=== PATIENT | female | born 1995 | race Caucasian/White ===

== ENCOUNTER 2018-03-12 19:21 | Emergency (ER) | payer MEDICAID ==
[~2018-03-12] VITALS: Ht 160 cm; Wt 63.0 kg
[~2018-03-12 19:21] MED LIST: ANTI14DR2 OT; IBUP-1984 PO; IBUP-1986 PO; METH500T6 PO; NO HOME MEDS; ONDA4TAB6 PO; ONDA8TAB9 PO; PSEU-259 CORPAK
[2018-03-12] MEDS ORDERED: TRIA15CR61 TOP (20:36)
[2018-03-12 20:39] VITALS: BP 125/89
== END 2018-03-12 20:46 | disposition home or self-care (01) ==
LOC: ER 19:22
DX: L23.9 Allergic contact dermatitis, unspecified cause (principal); F12.10 Cannabis abuse, uncomplicated; F17.200 Nicotine dependence, unspecified, uncomplicated; Z98.890 Other specified postprocedural states
CPT/HCPCS: 99283

== ENCOUNTER 2018-08-30 18:47 | Emergency (ER) | payer MEDICAID ==
[~2018-08-30] VITALS: Ht 157.5 cm; Wt 66.0 kg
[2018-08-30 18:52] VITALS: BP 136/82
[2018-08-30] MEDS ORDERED: IBUP-1984 PO (20:16)
== END 2018-08-30 20:25 | disposition home or self-care (01) ==
LOC: ER 18:47
DX: M79.645 Pain in left finger(s) (principal); M79.642 Pain in left hand; F12.90 Cannabis use, unspecified, uncomplicated; X58.XXXA Exposure to other specified factors, initial encounter; Y93.89 Activity, other specified; Y92.89 Other specified places as the place of occurrence of the external cause; Y99.8 Other external cause status
CPT/HCPCS: 73130; 99284

== ENCOUNTER 2019-09-13 12:10 | Emergency (ER) | payer MEDICAID ==
[~2019-09-13] VITALS: Ht 162.6 cm; Wt 61.0 kg
[2019-09-13 12:17] VITALS: BP 108/73
[2019-09-13] MEDS ORDERED: ibuprofen tablet 400 MG TABLET PO ONE (13:45)
[2019-09-13] MEDS ORDERED: acetaminophen 325mg tablet PO ONE (13:45)
== END 2019-09-13 13:55 | disposition home or self-care (01) ==
LOC: ER 12:10
DX: S93.402A Sprain of unspecified ligament of left ankle, initial encounter (principal); F12.90 Cannabis use, unspecified, uncomplicated; Z98.890 Other specified postprocedural states; W10.9XXA Fall (on) (from) unspecified stairs and steps, initial encounter; Y93.89 Activity, other specified; Y92.89 Other specified places as the place of occurrence of the external cause; Y99.9 Unspecified external cause status
CPT/HCPCS: 73610; 99283

== ENCOUNTER 2020-01-19 14:23 | Emergency (ER) | payer MEDICAID ==
[~2020-01-19] VITALS: Ht 157.5 cm; Wt 56.0 kg
[2020-01-19 14:53] LABS: URINE HCG NEGATIVE (NEG)
[2020-01-19 14:56] LABS: BASOPHILS % (AUTO) 0.5 % (0-1); EOSINOPHILS % (AUTO) 0.4 % (0-6); HEMATOCRIT 43.2 % (35.0-45.0); HEMOGLOBIN 14.6 g/dl (12.0-16.0); LYMPHOCYTES # (AUTO) 1.9 X10'3 (1.1-4.8); LYMPHOCYTES % (AUTO) 21.8 % (21-51); MEAN CORPUSCULAR HEMOGLOBIN 30.7 PG (27.0-31.0); MEAN CORPUSCULAR HGB CONC 33.7 g/dL (33.0-36.5); MEAN CORPUSCULAR VOLUME 91.2 FL (78-98); MEAN PLATELET VOLUME 8.2 FL (7.4-10.4); MONOCYTES # (AUTO) 0.6 X10'3 (0-0.9); MONOCYTES % (AUTO) 6.5 % (2-12); NEUTROPHILS # (AUTO) 6.2 X10'3 (1.8-7.7); NEUTROPHILS % (AUTO) 70.8 % (42-75); PLATELET COUNT 295 X10'3 (140-440); RED BLOOD COUNT 4.74 X10'6 (4.20-5.60); RED CELL DISTRIBUTION WIDTH 13.7 % (11.5-14.5); WHITE BLOOD COUNT 8.8 X10'3 (4.5-11.0)
[2020-01-19 14:56] LABS: CLARITY,URINE CLOUDY (Clear); GLUCOSE, URINE NEGATIVE (Neg); KETONES,URINE 15 mg/dl (Neg); LEUKOCYTE ESTERASE ,URINE SMALL (Neg); NITRITES, URINE NEGATIVE (Neg); OCCULT BLOOD,URINE TRACE-INTACT (Neg); PROTEIN,URINE TRACE mg/dl (Neg)
[2020-01-19 14:58] LABS: UA COLLECTION TYPE CLN CATCH MIDSTREAM
[2020-01-19 14:59] LABS: COLOR,URINE DARK YELLOW (Yellow)
[2020-01-19 15:04] LABS: BACTERIA,URINE 4+ /HPF (Neg); MUCUS STRANDS MANY /LPF (Neg); RBC,URINE 0-2 /HPF (0-2); SQUAMOUS EPITHELIAL CELL,UR MANY /LPF (FEW); WBC,URINE 20-30 /HPF (0-4)
[2020-01-19 15:14] LABS: ALANINE AMINOTRANSFERASE 10 U/L (12-78); ALBUMIN 3.9 G/DL (3.4-5.0); ALKALINE PHOSPHATASE 60 IU/L (46-116); ANION GAP 8 (8-16); ASPARTATE AMINO TRANSFERASE 15 U/L (10-37); BILIRUBIN,TOTAL 1.1 MG/DL (0.1-1.0); BLOOD UREA NITROGEN 8 MG/DL (7-18); BUN/CREATININE RATIO 6.7 (6.6-38.0); CALCIUM 8.8 MG/DL (8.5-10.1); CHLORIDE 104 MMOL/L (99-107); GLUCOSE 86 MG/DL (70-104); LIPASE 71 U/L (73-393); POTASSIUM 3.2 MMOL/L (3.5-5.1); SODIUM 140 MMOL/L (135-145); TOTAL CARBON DIOXIDE 28.1 MMOL/L (24-32); TOTAL PROTEIN 7.8 G/DL (6.4-8.2); eGFR 56 ML/MIN
[2020-01-19] MEDS ORDERED: sucralfate 1 gm tablet PO ONE (15:15)
[2020-01-19] MEDS ORDERED: LIDOcaine Viscous 15ml cup MM ONE (15:15)
[2020-01-19] MEDS ORDERED: mag hydrox/Alum hydrox/simeth 30ml oral suspension PO ONE (15:15)
--- NOTE | 2020-01-19 15:50 | NUR ---
patient given gi cocktail was able tyom take a little more than half before gagging, will try to give her more
[2020-01-19 16:03] VITALS: BP 105/57
== END 2020-01-19 16:26 | disposition home or self-care (01) ==
LOC: ER 14:24
DX: R10.11 Right upper quadrant pain (principal); R11.2 Nausea with vomiting, unspecified; F12.90 Cannabis use, unspecified, uncomplicated; F17.200 Nicotine dependence, unspecified, uncomplicated; Z98.890 Other specified postprocedural states
CPT/HCPCS: 36415; 76700; 80053; 81001; 81025; 83690; 85025; 99284

== ENCOUNTER 2020-06-18 11:11 | Emergency (ER) | payer MEDICAID ==
[~2020-06-18] VITALS: Ht 157.5 cm; Wt 57.6 kg
[2020-06-18 11:23] VITALS: BP 117/77
[2020-06-18] MEDS ORDERED: HYDR-4383 PO (12:34)
[2020-06-18] MEDS ORDERED: AMOX-422 PO (12:34)
== END 2020-06-18 12:41 | disposition home or self-care (01) ==
LOC: ER 11:12
DX: K04.7 Periapical abscess without sinus (principal); F17.200 Nicotine dependence, unspecified, uncomplicated; F12.90 Cannabis use, unspecified, uncomplicated; Z98.890 Other specified postprocedural states; Z79.2 Long term (current) use of antibiotics; Z79.899 Other long term (current) drug therapy
CPT/HCPCS: 99283

== ENCOUNTER 2020-06-21 20:06 | Emergency (ER) | payer MEDICAID ==
[~2020-06-21] VITALS: Ht 157.5 cm; Wt 56.6 kg
[~2020-06-21 20:06] MED LIST changes: +AMOX-422 PO; +HYDR-4383 PO
[2020-06-21] MEDS ORDERED: HYDR-3965 PO (20:52)
[2020-06-21] MEDS ORDERED: ketorolac trometh. 30mg/ml inj. IM ONE (20:55)
[2020-06-21 21:09] VITALS: BP 117/87
== END 2020-06-21 21:12 | disposition home or self-care (01) ==
LOC: ER 20:06
DX: K02.9 Dental caries, unspecified (principal); F17.200 Nicotine dependence, unspecified, uncomplicated; F12.90 Cannabis use, unspecified, uncomplicated; Z98.890 Other specified postprocedural states; Z79.899 Other long term (current) drug therapy
CPT/HCPCS: 96372; 99283; J1885

== ENCOUNTER 2020-07-03 20:00 | Emergency (ER) | payer MEDICAID ==
[~2020-07-03] VITALS: Ht 160 cm; Wt 58.0 kg
[~2020-07-03 20:00] MED LIST changes: -AMOX-422 PO
[2020-07-03 20:11] VITALS: BP 99/67
[2020-07-03] MEDS ORDERED: LIDOcaine Viscous 15ml cup MM STA (21:21)
[2020-07-03] MEDS ORDERED: penicillin V potassium 500mg tablet PO ONE (21:25)
[2020-07-03] MEDS ORDERED: LIDO20SO16 PO (21:57)
[2020-07-03] MEDS ORDERED: PENI500T2 PO (21:57)
== END 2020-07-03 22:02 | disposition home or self-care (01) ==
LOC: ER 20:01
DX: K08.89 Other specified disorders of teeth and supporting structures (principal); R51 Headache; F12.90 Cannabis use, unspecified, uncomplicated; Z98.890 Other specified postprocedural states; Z79.899 Other long term (current) drug therapy
CPT/HCPCS: 99283

== ENCOUNTER 2020-10-02 09:01 | Emergency (ER) | payer MEDICAID ==
[~2020-10-02] VITALS: Ht 157.5 cm; Wt 57.4 kg
[~2020-10-02 09:01] MED LIST changes: +LIDO20SO16 PO
[2020-10-02 09:03] VITALS: BP 109/80
[2020-10-02] MEDS ORDERED: AMOX500C2 PO (09:20)
== END 2020-10-02 09:48 | disposition home or self-care (01) ==
LOC: ER 09:01
DX: K08.89 Other specified disorders of teeth and supporting structures (principal); S02.5XXA Fracture of tooth (traumatic), initial encounter for closed fracture; F12.90 Cannabis use, unspecified, uncomplicated; Z79.899 Other long term (current) drug therapy; Z98.890 Other specified postprocedural states; Z79.2 Long term (current) use of antibiotics; X58.XXXA Exposure to other specified factors, initial encounter; Y93.89 Activity, other specified; Y92.89 Other specified places as the place of occurrence of the external cause; Y99.8 Other external cause status
CPT/HCPCS: 99283

== ENCOUNTER 2020-11-10 17:25 | Emergency (ER) | payer MEDICAID ==
[~2020-11-10] VITALS: Ht 157.5 cm; Wt 59.1 kg
[2020-11-10 18:47] VITALS: BP 106/62
== END 2020-11-10 18:45 | disposition home or self-care (01) ==
LOC: ER 17:25
DX: M65.842 Other synovitis and tenosynovitis, left hand (principal); M79.642 Pain in left hand; R20.0 Anesthesia of skin; M19.90 Unspecified osteoarthritis, unspecified site; F17.200 Nicotine dependence, unspecified, uncomplicated; F12.90 Cannabis use, unspecified, uncomplicated; Z98.890 Other specified postprocedural states; Z79.899 Other long term (current) drug therapy
CPT/HCPCS: 29125; 73110; 99283

== ENCOUNTER 2021-01-22 09:09 | Emergency (ER) | payer BC, MEDICAID ==
[~2021-01-22] VITALS: Ht 160 cm; Wt 65.0 kg
[~2021-01-22 09:09] MED LIST changes: +METH-797 PO; -METH500T6 PO
[2021-01-22 09:11] VITALS: BP 115/79
== END 2021-01-22 10:45 | disposition home or self-care (01) ==
LOC: ER 09:10
DX: M75.101 Unspecified rotator cuff tear or rupture of right shoulder, not specified as traumatic (principal); M19.90 Unspecified osteoarthritis, unspecified site; F12.90 Cannabis use, unspecified, uncomplicated; Z98.890 Other specified postprocedural states; Z79.899 Other long term (current) drug therapy
CPT/HCPCS: 73030; 99283

== ENCOUNTER 2021-06-29 15:16 | Emergency (ER) | payer BC, MEDICAID ==
[~2021-06-29] VITALS: Ht 157.5 cm; Wt 63.2 kg
[2021-06-29 15:28] VITALS: BP 125/90
[2021-06-29] MEDS ORDERED: PENI250T2 PO (16:18)
[2021-06-29] MEDS ORDERED: PRED20TA PO (16:18)
[2021-06-29] MEDS ORDERED: LIDO20SO16 PO (16:18)
== END 2021-06-29 16:22 | disposition home or self-care (01) ==
LOC: ER 15:16
DX: S02.5XXA Fracture of tooth (traumatic), initial encounter for closed fracture (principal); K08.89 Other specified disorders of teeth and supporting structures; M19.90 Unspecified osteoarthritis, unspecified site; F12.90 Cannabis use, unspecified, uncomplicated; Z98.890 Other specified postprocedural states; Z79.2 Long term (current) use of antibiotics; Z79.899 Other long term (current) drug therapy; X58.XXXA Exposure to other specified factors, initial encounter; Y93.89 Activity, other specified; Y92.89 Other specified places as the place of occurrence of the external cause; Y99.8 Other external cause status
CPT/HCPCS: 99283

== ENCOUNTER 2022-02-28 15:20 | Emergency (ER) | payer MEDICAID ==
[~2022-02-28] VITALS: Ht 160 cm; Wt 67.7 kg
[2022-02-28 15:30] VITALS: BP 108/71
[2022-02-28] MEDS ORDERED: LIDOcaine/epinephrine/tetracaine TOPICAL sol 3 ML syringe TOP ONE ×2 (17:05→17:20)
== END 2022-02-28 18:00 | disposition home or self-care (01) ==
LOC: ER 15:20
DX: S61.239A Puncture wound without foreign body of unspecified finger without damage to nail, initial encounter (principal); F12.90 Cannabis use, unspecified, uncomplicated; M19.90 Unspecified osteoarthritis, unspecified site; Z87.81 Personal history of (healed) traumatic fracture; Z79.899 Other long term (current) drug therapy; W54.0XXA Bitten by dog, initial encounter; Y93.89 Activity, other specified; Y92.89 Other specified places as the place of occurrence of the external cause; Y99.8 Other external cause status
CPT/HCPCS: 73110; 73130; 99284; J3490

== ENCOUNTER 2022-04-23 12:03 | Emergency (ER) | payer MEDICAID ==
[~2022-04-23] VITALS: Ht 160 cm; Wt 63.6 kg
[2022-04-23] MEDS ORDERED: ketorolac tromethamine 15mg/ml inj. IM ONE (16:00)
[2022-04-23] MEDS ORDERED: LORazepam 2 mg/ml vial IM ONE (16:05)
[2022-04-23 17:45] VITALS: BP 107/52
[2022-04-23] MEDS ORDERED: IBUP-1984 PO (17:53)
[2022-04-23] MEDS ORDERED: CYCL-1 PO (17:53)
[2022-04-23] MEDS ORDERED: orphenadrine citrate 60mg/2ml inj. IM ONE (17:55)
== END 2022-04-23 18:29 | disposition home or self-care (01) ==
LOC: ER 12:03
DX: G89.29 Other chronic pain (principal); M54.59 Other low back pain; F12.10 Cannabis abuse, uncomplicated; Z87.81 Personal history of (healed) traumatic fracture; Z79.899 Other long term (current) drug therapy
CPT/HCPCS: 72148; 96372; 99284; J1885; J2060; J2360

== ENCOUNTER 2023-09-29 12:48 | Emergency (ER) | payer MEDICAID ==
[~2023-09-29] VITALS: Ht 154.9 cm; Wt 60.0 kg
[~2023-09-29 12:48] MED LIST changes: +CYCL-1 PO
[2023-09-29 12:51] VITALS: BP 104/44; PULSE 79; RESP 16; TEMP 97.7; O2SAT 98
[2023-09-29] MEDS ORDERED: LIDOCAINE 1%/EPI 1:100,000 inj. 10 ML multi-dose vial IJ ONE ×2 (15:45→16:30)
[2023-09-29] MEDS ORDERED: bacitracin 15gm ointment TP ONE (15:45)
[2023-09-29] MEDS ORDERED: ibuprofen tablet 400 MG TABLET PO ONE ×2 (15:45→15:50)
[2023-09-29] MEDS ORDERED: AMOX-117 PO (16:58)
[2023-09-29] MEDS ORDERED: IBUP-1984 PO (16:58)
== END 2023-09-29 17:21 | disposition home or self-care (01) ==
LOC: ER 12:49
DX: S51.812A Laceration without foreign body of left forearm, initial encounter (principal); Z87.81 Personal history of (healed) traumatic fracture; W54.0XXA Bitten by dog, initial encounter; Y93.89 Activity, other specified; Y92.89 Other specified places as the place of occurrence of the external cause; Y99.8 Other external cause status
CPT/HCPCS: 12002; 73090; 99283; J7030; 99284; A6258; A6449

== ENCOUNTER 2023-10-02 13:46 | Emergency (ER) | payer MEDICAID ==
[~2023-10-02] VITALS: Ht 157.5 cm; Wt 65.2 kg
[~2023-10-02 13:46] MED LIST changes: +AMOX-117 PO
[2023-10-02 15:04] VITALS: BP 128/84; PULSE 78; RESP 16; TEMP 98.2; O2SAT 100
== END 2023-10-02 15:06 | disposition home or self-care (01) ==
LOC: ER 13:46
DX: S41.152D Open bite of left upper arm, subsequent encounter (principal); W54.0XXD Bitten by dog, subsequent encounter
CPT/HCPCS: 99281

== ENCOUNTER 2024-12-14 13:04 | Emergency (ER) | payer MEDICAID ==
[~2024-12-14] VITALS: Ht 157.5 cm; Wt 61.5 kg
[~2024-12-14 13:04] MED LIST changes: -AMOX-117 PO
[2024-12-14 13:11] VITALS: TEMP 97.8
[2024-12-14] MEDS ORDERED: METH-798 PO (15:35)
[2024-12-14] MEDS ORDERED: IBUP-1985 PO (15:35)
[2024-12-14] MEDS ORDERED: ACET-1025 PO (15:35)
[2024-12-14] MEDS: ketorolac trometh 30MG/ML vial 30 MG/ML VIAL IV STA (15:48)
[2024-12-14 15:53] VITALS: BP 126/89; PULSE 88; RESP 16; O2SAT 98
== END 2024-12-14 15:56 | disposition home or self-care (01) ==
LOC: ER 13:04
DX: S39.012A Strain of muscle, fascia and tendon of lower back, initial encounter (principal); G89.29 Other chronic pain; M19.90 Unspecified osteoarthritis, unspecified site; F12.90 Cannabis use, unspecified, uncomplicated; Z79.1 Long term (current) use of non-steroidal anti-inflammatories (NSAID); Z79.899 Other long term (current) drug therapy; Z98.890 Other specified postprocedural states; X58.XXXA Exposure to other specified factors, initial encounter; Y93.89 Activity, other specified; Y92.89 Other specified places as the place of occurrence of the external cause; Y99.8 Other external cause status
CPT/HCPCS: 96374; 99283; J1885